=== PATIENT | female | born 1980 | race Caucasian/White ===

== ENCOUNTER 2019-01-29 17:55 | Emergency (ER) | payer SELFPAY ==
[~2019-01-29] VITALS: Ht 170.2 cm; Wt 70.8 kg
[2019-01-29 18:33] LABS: BILIRUBIN,URINE NEGATIVE (NEGATIVE); CLARITY,URINE CLEAR (CLEAR); COLOR,URINE YELLOW (YELLOW); KETONES,URINE NEGATIVE (NEGATIVE); LEUKOCYTE ESTERASE ,URINE NEGATIVE (NEGATIVE); NITRITE,URINE NEGATIVE (NEGATIVE); PROTEIN,URINE DIPSTICK NEGATIVE (NEGATIVE); URINE UROBILINOGEN 0.2 mg/dL (0.2 - 1)
[2019-01-29 18:50] LABS: EPITHELIAL CELLS,URINE RARE /LPF
--- NOTE | 2019-01-29 19:10 | NUR ---
Report to MIRIAM Shore
[2019-01-29] MEDS ORDERED: ONDANSETRON HCL 4 MG ORAL DISINTEGRATING TAB PO ONE (19:45)
[2019-01-29] MEDS ORDERED: METRONIDAZOLE 500 MG TAB PO ONE (19:45)
[2019-01-29] MEDS ORDERED: CEFTRIAXONE SOD 250 MG VIAL IM ONE (19:45)
[2019-01-29] MEDS ORDERED: AZITHROMYCIN 250 MG TAB PO ONE (20:00)
[2019-01-29] MEDS ORDERED: LIDOCAINE HCL 1% 2 ML AMP ONE (20:10)
== END 2019-01-29 20:30 | disposition home or self-care (01) ==
LOC: ER 17:55
DX: A54.24 Gonococcal female pelvic inflammatory disease (principal); A56.11 Chlamydial female pelvic inflammatory disease
CPT/HCPCS: 81001; 81025; 87081; 87086; 87205; 93005; 99283; J0696; J2001; Q0162